=== PATIENT | female | born 1945 | race Caucasian/White ===

== ENCOUNTER → 2019-01-30 | Day surgery (SDC) | payer MEDICARE, MEDICAID ==
[~2019-01-30] MED LIST: ALBUTEROL SULFATE 2.5 MG/3 ML NEBU. NEB PRN; ATROPINE 0.5 MG/5 ML DISP.SYRIN. IV PRN; BUDE10.2 IH; BUPR300T4 PO; DICL50TA4 PO; ERGO500027 PO; FENT-73 TP; FENT1PAT15 TP; FERR325T14 PO; FEXO180T81 PO; FLUT15.88 NS; GABA-586 PO; IV RINGERS SOLUTION,LACTATED 1,000 ML IV SCH; LIDOCAINE 2% PF Vial for OR 5 ML VIAL. ONE; LOVA40TA2 PO; MERC50TA PO; MULT1TAB52 PO; NALOXONE 0.4 MG/ML VIAL. IV PRN; OMEP40CA5 PO; ONDANSETRON PF 4 MG/2 ML VIAL. IV PRN; PROPOFOL 40 ML IV ONE; SUCR1TAB PO; SULF500T7 PO; diphenhydrAMINE 50 MG/ML VIAL IV PRN; tylenol arthritis
[2019-01-30 14:15] VITALS: BP 118/60
== END | disposition home or self-care (01) ==
LOC: SURG 10:35
PROVIDERS: ATTEND Internal Medicine Gastroenterology
DX: K63.3 Ulcer of intestine (principal); K50.00 Crohn's disease of small intestine without complications; K56.699 Other intestinal obstruction unspecified as to partial versus complete obstruction; K21.9 Gastro-esophageal reflux disease without esophagitis; Z98.51 Tubal ligation status; Z90.49 Acquired absence of other specified parts of digestive tract; Z88.8 Allergy status to other drugs, medicaments and biological substances; Z91.041 Radiographic dye allergy status
CPT/HCPCS: 45380; J2704; J7120; J2001